=== PATIENT | male | born 2000 | race Caucasian/White ===

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

== ENCOUNTER 2023-09-26 22:29 | Emergency (ER) | payer BC, OTHER ==
[2023-09-26] MEDS ORDERED: Fluorescein Opthalmic Strip ONE (23:26)
[2023-09-26] MEDS ORDERED: Proparacaine 0.5% Opth 15 ML BOT ONE (23:26)
== END 2023-09-27 00:12 | disposition home or self-care (01) ==
LOC: ERS 22:29
DX: S06.0X0A Concussion without loss of consciousness, initial encounter (principal); S00.11XA Contusion of right eyelid and periocular area, initial encounter; W22.8XXA Striking against or struck by other objects, initial encounter; Y92.34 Swimming pool (public) as the place of occurrence of the external cause
CPT/HCPCS: 70450